=== PATIENT | male | born 1985 | race Two or more races ===

== ENCOUNTER 2017-01-02 05:18 | Emergency (ER) | payer BC, MEDICAID ==
[~2017-01-02] VITALS: Ht 165.1 cm; Wt 63.5 kg
[2017-01-02 05:46] VITALS: BP 144/89
== END 2017-01-02 08:20 | disposition home or self-care (01) ==
LOC: ER 05:24
DX: M54.42 Lumbago with sciatica, left side (principal)
CPT/HCPCS: 99283; A4606; Z7610

== ENCOUNTER 2018-12-04 09:06 | Emergency (ER) | payer MEDICAID ==
[~2018-12-04] VITALS: Ht 162.6 cm; Wt 69.9 kg
[2018-12-04 09:09] VITALS: BP 128/78
--- NOTE | 2018-12-04 09:18 | NUR ---
PT SEEN AND EXAMINED BY .
[2018-12-04] MEDS ORDERED: TDAP [DIPH/PERTUSSIS/TET] 0.5 ML VIAL IM ONE ×2 (09:23→09:30)
--- NOTE | 2018-12-04 09:36 | NUR ---
RESTAURANT ASSISTANT AT BEDSIDE FOR XRAY.
--- NOTE | 2018-12-04 10:14 | NUR ---
Patient discharged to home in stable condition. Written and verbal after care instructions given. Patient verbalizes understanding of instruction.
== END 2018-12-04 10:14 | disposition home or self-care (01) ==
LOC: ER 09:10
DX: S91.135A Puncture wound without foreign body of left lesser toe(s) without damage to nail, initial encounter (principal); M54.30 Sciatica, unspecified side; F10.10 Alcohol abuse, uncomplicated; F17.200 Nicotine dependence, unspecified, uncomplicated; Y90.9 Presence of alcohol in blood, level not specified; W22.8XXA Striking against or struck by other objects, initial encounter; Y93.01 Activity, walking, marching and hiking; Y92.89 Other specified places as the place of occurrence of the external cause; Y99.8 Other external cause status
CPT/HCPCS: 73630-TC; 90715

== ENCOUNTER 2021-02-15 09:49 | Emergency (ER) | payer BC, MEDICAID ==
[~2021-02-15] VITALS: Ht 157.5 cm; Wt 63.5 kg
--- NOTE | 2021-02-15 10:00 | NUR ---
PT CAME TO ER C/O CP AND TACHYCARDIA SINCE 5AM TODAY, NONRADIATING. ADMITS NAUSEA, VOMITING, JITTERINESS. ADMITS USING COCAINE LAST NIGHT. AAOX4, BREATHING EVEN AND UNLABORED, SKIN WARM AND DRY, ON MONITOR, HR 100, EKG BEING DONE AT BEDSIDE.
--- NOTE | 2021-02-15 10:08 | NUR ---
BLOOD SAMPLE OBTAINED AND SENT TO LAB
--- NOTE | 2021-02-15 10:10 | NUR ---
RADIOLOGY AT BEDSIDE
[2021-02-15 10:23] LABS: BASOPHILS % (AUTO) 1.1 % (0.0-2.0); EOSINOPHILS % (AUTO) 1.9 % (0.0-6.0); HEMATOCRIT 45 % (39-51); HEMOGLOBIN 15.2 g/dL (13.5-17.5); LYMPHOCYTES # (AUTO) 1.4 K/uL (0.8-4.8); LYMPHOCYTES % (AUTO) 33.2 % (20.0-44.0); MEAN CORPUSCULAR HGB CONC 34 g/dl (31.0-36.0); MEAN CORPUSCULAR VOLUME 91 fL (80-96); MONOCYTES # (AUTO) 0.3 K/uL (0.1-1.30); MONOCYTES % (AUTO) 7.9 % (2.0-12.0); NEUTROPHILS # (AUTO) 2.4 K/uL (1.8-8.9); NEUTROPHILS % (AUTO) 55.9 % (43.0-81.0); PLATELET COUNT (AUTO) 178 K/uL (150-450); WHITE BLOOD COUNT (AUTO) 4.3 K/uL (4.3-11.0)
[2021-02-15 10:27] LABS: CALCIUM, SERUM 8.9 mg/dL (8.5-10.1); CARBON DIOXIDE 23 mmol/L (21-32); CHLORIDE 97 mmol/L (98-107); CREATININE 0.9 mg/dL (0.6-1.3); GLUCOSE 131 mg/dL (74-106); POTASSIUM 3.5 mmol/L (3.5-5.1); SODIUM SERUM 137 mmol/L (136-145); UREA NITROGEN, BLOOD 11 mg/dL (7-18)
[2021-02-15] MEDS ORDERED: NITROGLYCERIN 0.4 MG/TAB BOTTLE SL STA (10:57)
[2021-02-15] MEDS ORDERED: NITROGLYCERIN 0.4 MG/TAB BOTTLE ONE (11:18)
[2021-02-15 12:15] VITALS: BP 121/91
== END 2021-02-15 11:59 | disposition home or self-care (01) ==
LOC: ER 09:54
DX: R07.89 Other chest pain (principal); F41.9 Anxiety disorder, unspecified; F14.10 Cocaine abuse, uncomplicated
CPT/HCPCS: 36415; 71045-TC; 80048-TC; 83880; 84484-TC; 85025-TC; 85730-TC